=== PATIENT | female | born 1980 | race Caucasian/White ===

== ENCOUNTER 2019-01-13 04:12 | Inpatient (IN) | payer OTHER ==
[2019-01-13 05:06] LABS: Urine Benzodiazepine Screen None Detected (None Detect); Urine Opiates Screen None Detected (None Detect)
[2019-01-13 05:42] LABS: Hematocrit 32 % (35-47); Mean Corpuscular HGB Conc 34 g/dL (31-36); Mean Corpuscular Hemoglobin 27 pg (27-31); Mean Corpuscular Volume 80 fL (80-97); Mean Platelet Volume 9.7 fL (7.4-10.4); Platelet Count 230 10^3/uL (150-450); Red Blood Count 4.03 10^6 /uL (3.70-4.87); Red Cell Distribution Width 16 % (10-15); White Blood Count 11.6 10^3/uL (3.5-10.8)
[2019-01-13] MEDS ORDERED: Lactated Ringers 1000 ML Bag* 1,000 ML IV ONE (06:00)
[2019-01-13] MEDS ORDERED: Buffered Lidocaine 1% SYRIN* 1 ML/SYRINGE INTRADERM ONE (06:00)
[2019-01-13] MEDS ORDERED: Lactated Ringers 1000 ML Bag* 1,000 ML IV SCH ×2 (06:00→07:00)
[2019-01-13] MEDS ORDERED: Dibucaine 1% 28.35 GM TUBE PR PRN (06:03)
[2019-01-13] MEDS ORDERED: Witch Hazel PAD* JAR TOPICAL PRN (06:03)
[2019-01-13] MEDS ORDERED: Glycerin ADULT SUPP PR PRN (06:03)
--- NOTE | 2019-01-13 06:08 | HP ---
General Information - Reason for Visit LABOR - General Information Maternal Age: 38 Grav: 2 Para: 1 SAB: 0 IEA: 0 Estimated Due Date: 01/20/19 Determined By: LMP Maternal Blood Type and Rh: AB Positive - Results this Serology/RPR Result: Non-Reactive Rubella Result: Immune HBsAg Result: Negative HIV Result: Negative GBS Culture Result: Negative Past Medical History Delivery History: See Records Pertinent Past Medical History: See Records Pertinent Past Surgical History: See Records Pertinent Family History: See Records - Antepartal Records Antepartal Records: Reviewed, Complicated by: - AMA Review of Systems Constitutional: Uncomfortable CV Complaint: No Respiratory: Shortness of Breath: No Gastrointestinal: No Nausea/Vomiting Genitourinary: No Dysuria, No Bleeding Musculoskeletal: Contractions Neurological: No Headache Movement: Normal Exam Allergies/Adverse Reactions: Allergies No Known Allergies Allergy (Verified 01/13/19 04:39) Lab Values - Entire Visit: Laboratory Tests 01/13/19 01/13/19 01/13/19 04:30 05:35 05:35 WBC 11.6 H RBC 4.03 Hgb 11.0 L Hct 32 L MCV 80 MCH 27 MCHC 34 RDW 16 H Plt Count 230 MPV 9.7 Urine Opiates Screen None detected Ur Barbiturates Screen None detected Ur Phencyclidine Scrn None detected Ur Amphetamines Screen None detected U Benzodiazepines Scrn None detected Urine Cocaine Screen None detected U Cannabinoids Screen None detected Blood Type AB Positive - Measurements Height: 5 ft 3 in Weight: 162 lb Weight in lbs: 162.283115 Body Mass Index (BMI): 28.7 - Exam Breast: Breast Exam Deferred CVA: No CVA Tenderness Extremities: No Edema Heart: Normal Rhythm/Heart Sounds HEENT: No Significant Findings Lungs: Clear Bilaterally Rectal: Rectal Exam Deferred Reflexes: DTR 2+ Thyroid: No Thyromegaly - Abdominal Exam Abdomen Exam: Non-Tender - Ultrasound/Biophysical Profile Ultrasound Status: Not Done Targeted Exam Findings Cervical Exam: Complete Effacement: 100% Station: +1 Presenting Part: Vertex Membrane Status: Leaking Amniotic Fluid Evaluation: Gross Rupture EFM Findings - External Monitor Findings Baseline Heart Rate: 140 External Monitor Findings: Accelerations Present, No Pattern of Variable or Late Decelerations, Variability Moderate Contractions: Regular Assessment/Plan - Assessment PT 38 yo at 39 weeks with active labor - Plan Plan: Admit - Anticipate Vaginal Delivery
[2019-01-13] MEDS: Ibuprofen TAB* 600 MG PO PRN ×4 (06:27→23:41)
[2019-01-13] MEDS: Acetaminophen TAB* 325 MG PO PRN ×4 (07:12→23:41)
[2019-01-13] MEDS ORDERED: Simethicone TAB* 80 MG TAB.CHEW PO SCH (08:30)
[2019-01-13] MEDS ORDERED: Lidocaine 1% INJ* 10 MG/ML 30 ML SDV ONE (09:41)
[2019-01-13] MEDS: Levothyroxine TAB* 100 MCG TAB PO SCH (10:23)
[2019-01-13] MEDS: Docusate CAP* 100 MG PO SCH ×3 (10:23→20:08)
[2019-01-14] MEDS: Ibuprofen TAB* 600 MG PO PRN ×3 (05:59→18:06)
[2019-01-14] MEDS: Levothyroxine TAB* 100 MCG TAB PO SCH (05:59)
[2019-01-14] MEDS: Docusate CAP* 100 MG PO SCH ×3 (08:06→20:11)
[2019-01-14] MEDS: Acetaminophen TAB* 325 MG PO PRN ×3 (08:06→20:10)
[2019-01-14 08:12] LABS: ABS Eosinophils 0.1 10^3/ul (0-0.6); ABS Lymphocytes 1.6 10^3/ul (1.0-4.8); ABS Monocytes 0.6 10^3/ul (0-0.8); ABS Neutrophils 6.7 10^3/ul (1.5-7.7); Eosinophil % 0.7 %; Hematocrit 29 % (35-47); Hemoglobin 9.6 g/dL (12.0-16.0); Lymphocyte % 17.7 %; Mean Corpuscular HGB Conc 34 g/dL (31-36); Mean Corpuscular Hemoglobin 27 pg (27-31); Mean Corpuscular Volume 82 fL (80-97); Nucleated Red Blood Cells % 0.1; Platelet Count 178 10^3/uL (150-450); Red Blood Count 3.51 10^6 /uL (3.70-4.87); Red Cell Distribution Width 15 % (10-15)
[2019-01-14] MEDS: Ferrous Gluconate TAB* 324 MG TAB PO SCH ×2 (11:51→20:11)
--- NOTE | 2019-01-14 14:56 | PTEDU ---
Patient Name: GRETA CHAVIRA GRETA CHAVIRA selected video: Follow Me Mum: [employer] [facility] Successful to view on 2018 at 2:55:40 PM [id number]
[2019-01-15] MEDS: Ibuprofen TAB* 600 MG PO PRN ×2 (04:29→11:26)
[2019-01-15] MEDS: Levothyroxine TAB* 100 MCG TAB PO SCH (06:12)
[2019-01-15] MEDS: Ferrous Gluconate TAB* 324 MG TAB PO SCH (08:17)
[2019-01-15] MEDS: Docusate CAP* 100 MG PO SCH (08:17)
[2019-01-15] MEDS: Acetaminophen TAB* 325 MG PO PRN (08:18)
[2019-01-15 09:23] VITALS: BP 115/58
== END 2019-01-15 12:23 | disposition home or self-care (01) | DRG 806 ==
LOC: MCHOBOUT 04:12 → MCHOB 04:22
PROVIDERS: ADMIT Obstetrics & Gynecology; ATTEND Obstetrics & Gynecology
PROC: 10E0XZZ Delivery of Products of Conception, External Approach (ICD-10-PCS; principal; 2019-01-13)
PROC: 0KQM0ZZ Repair Perineum Muscle, Open Approach (ICD-10-PCS; 2019-01-13)
PROC: 4A1HXCZ Monitoring of Products of Conception, Cardiac Rate, External Approach (ICD-10-PCS; 2019-01-13)
DX: O99.284 Endocrine, nutritional and metabolic diseases complicating childbirth (principal); E72.12 Methylenetetrahydrofolate reductase deficiency; Z37.0 Single live birth; E03.9 Hypothyroidism, unspecified; O70.1 Second degree perineal laceration during delivery; Z3A.39 39 weeks gestation of pregnancy; Q99.2 Fragile X chromosome; O90.81 Anemia of the puerperium
CPT/HCPCS: 36415; 80307; 85025; 85027; 86850; 86900; 86901; A9270-GY